=== PATIENT | male | born 1985 | race Caucasian/White ===

== ENCOUNTER 2018-07-05 15:02 | Emergency (ER) | payer BC ==
--- NOTE | 2018-07-05 15:45 | UC ---
Lower Extremity/Ankle HPI - HPI Summary HPI Summary: 33 y/o male presents to the urgent care c/o left lower left leg pain s/p jumping today around 1150AM today. Pt reports he heard a "popping" sound after her jumped and then mild pain developed w/ walking and movement. Pain is 3/10 localized in the mid calf. Pt denies numbness of tingling sensation. Pt has not taking anything for pain. Pt denies recent travel, Hx of DVT, smoking, SOB, chest pain, palpitations, abdominal pain, N/V/D, or recent strenuous exercise. - History of Current Complaint Chief Complaint: UCLowerExtremity Stated Complaint: LEG MUSCLE COMPLAINT Time Seen by Provider: 07/05/18 15:13 Hx Obtained From: Patient Onset/Duration: Sudden Onset, Lasting Hours - 2 hrs, Still Present Severity Initially: Moderate Severity Currently: Moderate Pain Intensity: 3 Pain Scale Used: 0-10 Numeric Aggravating Factor(s): Ambulation Alleviating Factor(s): Rest, Elevation, Ice Able to Bear Weight: Yes - Risk Factors Gout Risk Factors: Negative DVT Risk Factors: Negative Septic Arthritis Risk Factor: Negative - Allergies/Home Medications Allergies/Adverse Reactions: Allergies Allergy/AdvReac Type Severity Reaction Status Date / Time No Known Allergies Allergy Verified 07/05/18 15:16 PMH/Surg Hx/FS Hx/Imm Hx Previously Healthy: Yes Psychological History: Anxiety - Surgical History Surgical History: Yes Surgery Procedure, Year, and Place: ear tubes as child. wisdom teeth room - Family History Known Family History: Positive: Hypertension - Social History Occupation: Unemployed Lives: With Family Alcohol Use: Weekly Substance Use Type: None Smoking Status (MU): Never Smoked Tobacco Review of Systems Constitutional: Negative Skin: Negative Eyes: Negative ENT: Negative Respiratory: Negative Cardiovascular: Negative Gastrointestinal: Negative Genitourinary: Negative Motor: Negative Neurovascular: Negative Musculoskeletal: Other: - lef lower leg pain Neurological: Negative Psychological: Negative Is Patient Immunocompromised?: No All Other Systems Reviewed And Are Negative: Yes Physical Exam - Summary Physical Exam Summary: Vital Signs Reviewed: Yes Appearance: Well-Appearing, No Pain Distress, Well-Nourished,male sitting in the examining table w/o any apparent pain distress Eyes: Positive: Conjunctiva Clear - PERRLA< COLTON, fundi grossly WNL ENT: Positive: Normal ENT inspection, Hearing grossly normal, Pharynx normal, TMs normal, Uvula midline Neck: Positive: Supple, Nontender, No Lymphadenopathy Respiratory: Positive: Chest non-tender, Lungs clear, Normal breath sounds, No respiratory distress Cardiovascular: Positive: RRR, No Murmur, Pulses Normal, Brisk Capillary Refill Abdomen Description: Positive: Nontender, No Organomegaly, Soft. Negative: CVA Tenderness (R), CVA Tenderness (L) Bowel Sounds: Positive: Present Extremities:L extremity without deformity or asymmetry when compared to the R. NO edema. No overlying erythema, warmth, discoloration. No lesions or break in skin integrity. Diameter of calves same in both legs. Soft tissues of posterior lower legs are soft, supple, mild poitn tenderness on the medial aspect of the left mid lower leg w/ mild swelling on the same side, no palpable cords or evidence of thrombophlebitis. No evidence of gangrene or compartment syndrome. Medial thigh is without soft tissue swelling or tender to palpation. Negative Homans sign and Chisholm test negative. No proximal lymphangitis or lymphadenopathy. Neurological Exam: Normal Psychological Exam: Normal Skin Exam: Normal Triage Information Reviewed: Yes Vital Signs: Initial Vital Signs Temp 97.5 F 07/05/18 15:17 Pulse 96 07/05/18 15:17 Resp 18 07/05/18 15:17 BP 145/114 07/05/18 15:17 Pulse Ox 98 07/05/18 15:17 Lower Extremity Course/Dx - Course Course Of Treatment: 33 y/o male presents to the urgent care c/o left lower left leg pain s/p jumping today around 1150AM today. Pt reports he heard a "popping" sound after her jumped and then mild pain developed w/ walking and movement. Pain is 3/10 localized in the mid calf. Pt denies numbness of tingling sensation. Pt has not taking anything for pain. Pt denies recent travel , Hx of DVT, smoking, SOB, chest pain, palpitations, abdominal pain, N/V/D, or recent strenuous exercise.Hx obtained. Pt w/ mild point tenderness over the medial aspect of the mid left calf w/ mild swelling, FROM of left lower extremity. negative homman's signs or chisholm test on examination. Pt ptobably w/ a muscle strain. Pt's left lower immpbilized w/ art bandage and Rx Ibuprofen PO to alleviate symptoms. Pt advised RICE and given a referral w/ Orjamal LEES from Sports Medicine for further management. Pt's BP is elevated today advised to decrease salt in diet, monitor BP and f/u with PCP for further management.D/ C instructions explained. Pt understood and agreed w/ plan of care and left clinic ambulating and hemodynamically stable. - Differential Dx/Diagnosis Differential Diagnosis/HQI/PQRI: Contusion, Fracture (Closed), Sprain, Strain Provider Diagnoses: 1- Left lower leg pain. 2- Left lower muscle strain. 3- Elevated BP w/o Hx of HTN Discharge - Sign-Out/Discharge Documenting (check all that apply): Patient Departure - D/c home All imaging exams completed and their final reports reviewed: No Studies - Discharge Plan Condition: Stable Disposition: HOME Prescriptions: Ibuprofen TAB* [Motrin TAB* 600 MG] 600 mg PO Q6H PRN #30 tab PRN Reason: Pain Patient Education Materials: Low-Sodium Diet (ED), Leg Pain (ED) Referrals: [facility] [Provider Group] - 2 Days Hanna Yancey MD [Primary Care Provider] - 2 Days Additional Instructions: 1-Please take Ibuprofen PO q6-8hrs after meals as directed to alleviate pain and swelling. 2-Please apply ice, keep your leg immobilized with the Art-bandage. Avoid l long periods of standing or strenuous exercise. Elevate your ankle 3- Please f/u with Orthopedic Dr from the Sports Medicine in 2-3 days for further evaluation and treatment. 4- Your BP is elevated today. please decrease salt in your diet, monitor BP and if it continues to be elevated please f/u with your PCP for further management - Billing Disposition and Condition Condition: STABLE Disposition: Home
[2018-07-05 16:08] VITALS: BP 150/108
== END 2018-07-05 16:20 | disposition home or self-care (01) ==
LOC: UCEAST 15:02
DX: S86.911A Strain of unspecified muscle(s) and tendon(s) at lower leg level, right leg, initial encounter (principal); Y93.39 Activity, other involving climbing, rappelling and jumping off; Y93.9 Activity, unspecified; Y92.9 Unspecified place or not applicable; Z11.4 Encounter for screening for human immunodeficiency virus [HIV]
CPT/HCPCS: 36415; 86703; 99202; G0463